=== PATIENT | male | born 1935 | race Caucasian/White ===

== ENCOUNTER 2018-08-28 18:17 | Emergency (ER) | payer OTHER, BC ==
[2018-08-28 18:54] VITALS: BP 152/94; PULSE 68; TEMP 98.1; BMI 21.4
--- NOTE | 2018-08-28 19:26 | PDOC ---
History of Present Illness - General History Source: Patient Exam Limitations: No Limitations - History of Present Illness Initial Comments: 08/28/18 21:38 The patient is a 83 year old male, with a significant PMH of IBS and basal cell carcinoma, who presents to the emergency department with back pain that began at around 5:30 pm today. The patient states he was helping his friend get up from a fall when the patient heard an audible pop from his back. The patient currently complains of lower back pain that is constant and non radiating in nature, 8/10 severity. The patient denies any generalized weakness or numbness. The patient denies chest pain, shortness of breath, headache and dizziness. Denies fever, chills, nausea, vomit, diarrhea and constipation. Denies dysuria, frequency, urgency and hematuria. Allergies: NKDA Past surgical history: None reported Social history: None reported PCP: None reported <Terra Max - Last Filed: 08/28/18 21:47> <Ely Donahue - Last Filed: 08/29/18 01:38> - General Chief Complaint: Back Pain Stated Complaint: BACK PAIN Time Seen by Provider: 08/28/18 19:24 Past History <Terra Max - Last Filed: 08/28/18 21:47> - Past Medical History COPD: No - Suicide/Smoking/Psychosocial Hx Smoking History: Never smoked Have you smoked in the past 12 months: No Information on smoking cessation initiated: No Hx Alcohol Use: No Drug/Substance Use Hx: No Substance Use Type: None <Ely Donahue - Last Filed: 08/29/18 01:38> - Past Medical History Allergies/Adverse Reactions: Allergies Allergy/AdvReac Type Severity Reaction Status Date / Time No Known Allergies Allergy Verified 08/28/18 19:07 Home Medications: Ambulatory Orders Diclofenac Sodium [Voltaren -] 75 mg PO BID PRN #10 tablet. 08/28/18 Lidocaine 5% Patch [Lidoderm -] 1 patch TP DAILY #7 patch 08/28/18 Zolpidem Tartrate [Ambien] 5 mg PO HS 08/28/18 Review of Systems - Review of Systems Able to Perform ROS?: Yes Comments:: 08/28/18 21:39 GENERAL/CONSTITUTIONAL: No fever or chills. No weakness. HEAD, EYES, EARS, NOSE AND THROAT: No change in vision. No ear pain or discharge. No sore throat. CARDIOVASCULAR: No chest pain or shortness of breath. RESPIRATORY: No cough, wheezing, or hemoptysis. GASTROINTESTINAL: No nausea, vomiting, diarrhea or constipation. GENITOURINARY: No dysuria, frequency, or change in urination. MUSCULOSKELETAL: +Posterior back pain SKIN: No rash NEUROLOGIC: No headache, vertigo, loss of consciousness, or change in strength/ sensation. ENDOCRINE: No increased thirst. No abnormal weight change. HEMATOLOGIC/LYMPHATIC: No anemia, easy bleeding, or history of blood clots. ALLERGIC/IMMUNOLOGIC: No hives or skin allergy. <Terra Max - Last Filed: 08/28/18 21:47> *Physical Exam - Vital Signs Last Vital Signs Temp Pulse Resp BP Pulse Ox 98.1 F 68 20 152/94 100 08/28/18 18:18 1218 18:18 08/28/18 18:18 08/28/18 18:18 08/28/18 18:18 - Physical Exam Comments: 08/28/18 21:40 GENERAL: Awake, alert, and fully oriented, in no acute distress HEAD: No signs of trauma EYES: PERRLA, EOMI, sclera anicteric, conjunctiva clear ENT: Auricles normal inspection, hearing grossly normal, nares patent, oropharynx clear without exudates. Moist mucosa NECK: Normal ROM, supple, no lymphadenopathy, JVD, or masses LUNGS: Breath sounds equal, clear to auscultation bilaterally. No wheezes, and no crackles HEART: Regular rate and rhythm, normal S1 and S2, no murmurs, rubs or gallops ABDOMEN: Soft, nontender, normoactive bowel sounds. No guarding, no rebound. No masses CHEST WALL:+Mild tenderness to the right posterior chest rib 7th and 8th lateral to the spine. No vertebral tenderness. No lateral or anterior chest wall tenderness. NEUROLOGICAL: Cranial nerves II through XII grossly intact. Normal speech, normal gait SKIN: Warm, Dry, normal turgor, no rashes or lesions noted. <Terra Max - Last Filed: 08/28/18 21:47> - Vital Signs Last Vital Signs Temp Pulse Resp BP Pulse Ox 98.1 F 68 20 152/94 100 08/28/18 18:18 12/01/18 18:18 08/28/18 18:18 08/28/18 18:18 08/28/18 18:18 <Ely Donahue - Last Filed: 08/29/18 01:38> Moderate Sedation - Procedure Monitoring Vital Signs: Procedure Monitoring Vital Signs Temperature 98.1 F 08/28/18 18:18 Pulse Rate 68 08/28/18 18:18 Respiratory Rate 20 08/28/18 18:18 Blood Pressure 152/94 08/28/18 18:18 O2 Sat by Pulse Oximetry (%) 100 08/28/18 18:18 <Terra Max - Last Filed: 08/28/18 21:47> - Procedure Monitoring Vital Signs: Procedure Monitoring Vital Signs Temperature 98.1 F 08/28/18 18:18 Pulse Rate 68 08/28/18 18:18 Respiratory Rate 20 08/28/18 18:18 Blood Pressure 152/94 08/28/18 18:18 O2 Sat by Pulse Oximetry (%) 100 08/28/18 18:18 <Ely Donahue - Last Filed: 08/29/18 01:38> ED Treatment Course - Medications Given in the ED: ED Medications Discontinued Medications Generic Name Dose Route Start Last Admin Trade Name Freq PRN Reason Stop Dose Admin Ketorolac Tromethamine 60 mg 08/28/18 20:13 08/28/18 20:20 Toradol Injection - IM 08/28/18 20:14 60 mg ONCE ONE Administration <Terra Max - Last Filed: 08/28/18 21:47> Medical Decision Making - Medical Decision Making Documentation has been prepared under my direction and personally reviewed by me in its entirety. I attest that this documented accurately reflects all work, treatment, procedures and medical decision making performed by me. As noted above, this 83-year-old male without significant past medical history presents with acute onset of discomfort in the right paraspinal region (T7/8 area) accompanied by a "pop" as he was lifting up a person off of the floor. Patient himself did not fall or otherwise impact the area. He has no extremity pain/paresthesias/weakness. No previous history of this type of occurrence. Exam as noted with mild tenderness of the paraspinal area but no vertebral body tenderness or deformity. Clinical presentation most consistent with soft tissue injury; since patient had no direct impact to the area is very unlikely that it of fracture or dislocation is present. Therefore, imaging will be deferred. This was discussed with the patient who agreed to the plan. Meanwhile, the patient will receive Toradol 60 mg IM for its anti-inflammatory/analgesia effects. Prescription for diclofenac 75 mg up to twice a day taken with food will be sent to his pharmacy. Also, lidocaine patch to be used daily for one week loss be sent to the pharmacy. Patient will return here or see his doctor if he has persistent pain or if pain worsens/accompanied by paresthesias or numbness of his limbs. <Ely Donahue - Last Filed: 08/29/18 01:38> *DC/Admit/Observation/Transfer - Attestations Scribe Attestion: 08/28/18 21:40 Documentation prepared by Terra Max, acting as medical planner for Ely Donahue MD. <Terra Max - Last Filed: 08/28/18 21:47> <Ely Donahue - Last Filed: 08/29/18 01:38> Diagnosis at time of Disposition: Posterior chest pain - Discharge Dispostion Disposition: HOME Condition at time of disposition: Stable - Prescriptions Prescriptions: Diclofenac Sodium [Voltaren -] 75 mg PO BID PRN #10 tablet.dr MENON Reason: Moderate Pain Lidocaine 5% Patch [Lidoderm -] 1 patch TP DAILY #7 patch - Patient Instructions Printed Discharge Instructions: DI for Muscle Strain Additional Instructions: ibuprofen/naproxen/acetaminophen as needed for mild pain diclofenac 75mg twice a day as needed for moderate pain/take with food Lidocaine patch to area daily for 5days Avoid lifting/pushing/pulling anything heavier than 10 pounds for the next 2 weeks Return or see your doctor if you have persistent pain in the area Return immediately if you have shortness of breath/cough/fever
[2018-08-28] MEDS ORDERED: KETOROLAC TROMETHAMINE 60 MG/2 ML VIAL IM ONE (20:13)
[2018-08-28] MEDS ORDERED: KETOROLAC TROMETHAMINE 60 MG/2 ML VIAL ONE (20:16)
== END 2018-08-28 20:24 | disposition home or self-care (01) ==
LOC: FER 18:17
PROC: 3E0233Z Introduction of Anti-inflammatory into Muscle, Percutaneous Approach (ICD-10-PCS; principal; 2018-08-28)
DX: R07.89 Other chest pain (principal); X58.XXXA Exposure to other specified factors, initial encounter; Y93.89 Activity, other specified; Y92.89 Other specified places as the place of occurrence of the external cause; K58.9 Irritable bowel syndrome, unspecified
CPT/HCPCS: 99282-25